=== PATIENT | female | born 2000 | race Caucasian/White ===

== ENCOUNTER 2021-10-02 12:57 | Emergency (ER) | payer OTHER ==
[~2021-10-02] VITALS: Ht 162.6 cm; Wt 59.0 kg
[2021-10-02] MEDS ORDERED: SPRINTEC 28 DA1 EACH PO (13:10)
[2021-10-02] MEDS ORDERED: KETO10TA2 PO (13:48)
[2021-10-02] MEDS ORDERED: CLARITIN-D 121 EACH PO (15:12)
[2021-10-02] MEDS ORDERED: ZITHROMAX TRI-500 MG PO (15:12)
[2021-10-02] MEDS ORDERED: TUSSI PRES-B L480 ML PO (15:16)
== END 2021-10-02 15:50 | disposition home or self-care (01) ==
LOC: ER 12:57
DX: B34.9 Viral infection, unspecified (principal)